=== PATIENT | female | born 1965 | race Native Hawaiian/Other Pacific Islander ===

== ENCOUNTER 2016-08-10 13:01 | Emergency (ER) | payer MEDICAID ==
[2016-08-10] MEDS ORDERED: IBUPROFEN 600 MG TABLET ONE (13:51)
[2016-08-10] MEDS ORDERED: ACETAMINOPHEN 500 MG TABLET ONE (13:51)
[2016-08-10 14:19] LABS: URINE BILIRUBIN NEGATIVE (NEGATIVE); URINE BLOOD 4+ (NEGATIVE); URINE GLUCOSE (UA) NEGATIVE (NEGATIVE); URINE LEUKOCYTE ESTERASE 2+ (NEGATIVE); URINE NITRITE NEGATIVE (NEGATIVE); URINE PROTEIN TRACE (NEGATIVE); URINE UROBILINOGEN NORMAL (0-1 mg/dl)
[2016-08-10 14:21] LABS: URINE APPEARANCE SL CLOUDY; URINE COLOR AMBER
[2016-08-10 14:36] LABS: URINE RBC 15-20 /hpf
[2016-08-10 14:37] LABS: URINE BACTERIA 1+
== END 2016-08-10 15:05 | disposition home or self-care (01) ==
LOC: ED 13:01
DX: B34.9 Viral infection, unspecified (principal); R50.9 Fever, unspecified
CPT/HCPCS: 81001; 87804; 99283 ×2; A9270 ×2